=== PATIENT | female | born 1975 | race Two or more races ===

== ENCOUNTER 2018-06-28 15:10 | Emergency (ER) | payer BC, MEDICAID, MEDICARE ==
[~2018-06-28] VITALS: Ht 149.9 cm; Wt 61.2 kg
[2018-06-28 18:40] VITALS: BP 115/68
[2018-06-28] MEDS ORDERED: TETANUS-DIPTH-ACEL PERTUSSIS 0.5ML SYRG IM ONE (19:00)
== END 2018-06-28 19:27 | disposition home or self-care (01) ==
LOC: ER 15:33
DX: S71.151A Open bite, right thigh, initial encounter (principal); W54.0XXA Bitten by dog, initial encounter; Y93.89 Activity, other specified; Y99.8 Other external cause status; Y92.89 Other specified places as the place of occurrence of the external cause
CPT/HCPCS: 90471; 90715